=== PATIENT | male | born 1990 | race Hispanic/Latino ===

== ENCOUNTER 2016-11-23 15:12 | Emergency (ER) | payer OTHER ==
[~2016-11-23] VITALS: Ht 175.3 cm; Wt 72.1 kg
[2016-11-23 16:02] LABS: ABSOLUTE BASOPHIL COUNT 0 /CUMM (0.0-0.2); ABSOLUTE EOSINOPHIL COUNT 0 /CUMM (0.0-0.7); ABSOLUTE GRANULOCYTE CT 5.2 /CUMM (1.4-6.5); ABSOLUTE LYMPH COUNT 1.7 /CUMM (1.2-3.4); ABSOLUTE MONOCYTE COUNT 0.4 /CUMM (0.10-0.60); BASOPHIL % 0.4 % (0.0-2.0); EOSINOPHIL % 0.6 % (0-5); GRANULOCYTE % 69.9 % (42.2-75.2); HEMATOCRIT 47.3 % (42-52); MEAN CORPUSCULAR HGB CONC 33.5 G/DL (33.0-37.0); MEAN CORPUSCULAR VOLUME 89.3 FL (80.0-94.0); MEAN PLATELET VOLUME 8.8 FL (7.4-10.4); PLATELET COUNT 215 /CUMM (130-400); RBC DISTRIBUTION WIDTH 13.9 % (11.5-14.5); WHITE BLOOD CELL COUNT 7.5 /CUMM (4.8-10.8)
--- NOTE | 2016-11-23 16:14 | ED PSYCHIATRIC COMPLAINT ---
See Addendum History of Present Illness General Chief Complaint: Psychiatric Related Complaint Stated Complaint: DEPRESSION; SI Source: patient, family Exam Limitations: no limitations Allergies Coded Allergies: No Known Allergies (11/23/16) Reconcile Medications No Known Home Medications Triage Note: PT TO ER C/C +SI THOUGHTS AND INCREASED DEPRESSION X "AWHILE" DENIES HI. DENIES DRUG USE. LAST DRINK OF ETOH YESTERDAY. WHEN ASKED ABOUT DRINKING HABITS STATES, "I DRINK WHENEVER I FEEL LIKE IT". Triage Nurses Notes Reviewed? yes HPI: This patient is a 25-year-old male with past medical history including depression and anxiety who presented to the emergency department today by his mother for evaluation of suicidal thoughts. The patient reported that he has had suicidal thoughts in the past. The patient's mother reported that he has had depression for years with episodes of anxiety. She reported however that usually when he starts to feel very depressed, he talks things out with her and he has never mentioned suicidal thoughts until today. The patient denied having a specific plan. He denied making any suicidal attempts in the past. He denied any homicidal ideation or illicit drug use. When asked if the patient used alcohol, he reported, "when I want to." His last drink was last night. The patient denied any audio or visual hallucinations. He denied any fevers, chills , chest pain, shortness of breath, or abdominal pain. (ANGELINA BURR,CIAAR) Vital Signs & Intake/Output Vital Signs & Intake/Output Vital Signs Date Time Temp Pulse Resp B/P Pulse O2 O2 Flow FiO2 Ox Delivery Rate 11/24 1245 82 18 118/62 99 Room Air 11/24 0645 98.2 78 18 101/56 98 Room Air 11/24 0334 98.0 77 18 110/60 96 Room Air 11/23 2319 97.9 78 16 105/55 96 11/23 2154 99.8 86 16 120/60 95 Room Air 11/23 1900 96.2 87 20 133/62 97 Room Air ED Intake and Output 11/24 0000 11/23 1200 Intake Total Output Total Balance Patient 159 lb Weight Past History Travel History Traveled to [place] past 21 day No Medical History Any Pertinent Medical History? see below for history Psychiatric: depression Surgical History Surgical History: non-contributory Psychosocial History What is your primary language Belgian Tobacco Use: Current Daily Use Daily Tobacco Use Amount/Type: => 5 Cigarettes daily ETOH Use: occasional use Family History Hx Contributory? No (CIARA ALFARO PA-C) Review of Systems Review of Systems Constitutional: Reports: no symptoms. EENTM: Reports: no symptoms. Respiratory: Reports: no symptoms. Cardiovascular: Reports: no symptoms. GI: Reports: no symptoms. Musculoskeletal: Reports: no symptoms. Skin: Reports: no symptoms. Neurological/Psychological: Reports: see HPI. 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 Normal inspection Cardiovascular: Regular rate and rhythm with no murmurs, rubs, or gallops Respiratory: Chest nontender. No respiratory distress. Breath sounds clear to auscultation bilaterally Extremity: Normal and equal pulses Neuro: Alert oriented x3, cranial nerves II through XII grossly intact. Skin: No appreciable rash on exposed skin, skin is warm and dry. Psych: Mood and affect is depressed SAD PERSONS Done? yes (CIARA ALFARO PA-C) Progress Differential Diagnosis: drug intoxication, drug overdose, drug withdrawal, electrolyte abnormality, encephalitis, hypothyroidism, IC hem/mass/tumor, ALCOHOL INTOXICATION, MAJOR DEPRESSIVE DISORDER, GENERALIZED ANXIETY DISORDER Hand-Off Endorsed To: ELLI MENDIETA MD Endorsed Time: 230 Pending: consult, other (CIARA ALFARO PA-C) Plan of Care: Orders Procedure Date/time Status Continuous Observation Monitor 11/24 0822 Active Current Medications Sig/Amaris Start time Last Medication Dose Stop Time Status Admin Nicotine 21 MG DAILY 11/24 1000 CAN (Nicoderm) Hand-Off Endorsed To: MANJIT MCKAY DO Endorsed Time: 07 Pending: other (bed search) (ELLI MENDIETA MD) Departure Departure Disposition: STILL A PATIENT Condition: Stable Clinical Impression Primary Impression: Suicidal ideation Referrals: PATIENT HAS NO PRIMARY CARE DR (PCP/Family) Departure Forms: Customer Survey General Discharge Information Prescriptions: Current Visit Scripts No Known Home Medications (CIARA ALFARO PA-C) Departure Comments 11/24/16 11 AM the patient was signed out to me by Dr. Mendieta at 7 AM (MANJIT MCKAY DO) (CIARA ALFARO PA-C) Hand-Off Endorsed To: MANJIT MCKAY DO Endorsed Time: 0700 Pending: other (bed search) (FARA HIGH,ELLI Yoder) Departure Departure Disposition: STILL A PATIENT Condition: Stable Clinical Impression Primary Impression: Suicidal ideation Referrals: PATIENT HAS NO PRIMARY CARE DR (PCP/Family) Departure Forms: Customer Survey General Discharge Information Prescriptions: Current Visit Scripts No Known Home Medications (ANGELINA BURR,CIARA) Departure Comments 11/24/16 11 AM the patient was signed out to me by Dr. Mendieta at 7 AM (MANJIT MCKAY DO)
--- NOTE | 2016-11-23 19:25 | ED PSYCH CRISIS CONSULTATION ---
See Addendum Crisis Consult Basic Assessment Date of Consult: 11/23/16 Responsible Person/Accompanied By: with Mother Insurance Authorization: Insurance #1: Insurance name: SELF-PAY Phone number: Policy number: Group number: Authorization number: ED Provider: Patient's ED Provider: CIARA ALFARO PA-C Primary Care Physician: Patient's PCP: PATIENT HAS NO PRIMARY CARE DR PCP's Phone Number: Current Psychiatrist: None Chief Complaint: Psychiatric Related Complaint Patient's Quote: "I hate my life, and I want to kill myself" Present Illness: Pt is a 25 year old male, he told his stepfather this afternoon that he was having thoughts of hurting himself. He arrives with his Mother and states he doesn't like his life, and he wants to kill himself. He states he has had feelings of depression and anxiety for a while now, he denies any previous psychiatric treatment i.e. inpatient,outpatient. He has not been on any psychiatric medications currently or previously. He denies drug use, tox screen is negative. he admits he "manages his depression" by drinking, he reports the drinking varies, some days its just a beer, and other days he gets drunk, and drinks jagermeister. Pt also tries to manage symptoms by drawing, art, and painting, he also has an exgirlfriend "who si going thru the same thing, and she is a support". Pt denies hi/ah/vh. Pt reports si. 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 Patient's Address: [address] [place] [address] Other Phone Number: Who Do You Live With? Family Family/Informants Interviewed: Dmitriy Jeffries, who is with him, states he has been isolating and withdrawn all week, she reports she suffers from depression and had been to [facility] 5 years ago, she is fearful for her sons safety, she reports he alexey to talk to her and process life with her and this week he has been different. Allergies - Coded Allergies: No Known Allergies (11/23/16) Current Medications - No Known Home Medications Laboratory Results: Laboratory Tests 11/23/16 1553: CBC w Diff NO MAN DIFF REQ, RBC 5.30, MCV 89.3, MCH 30.0, RDW 13.9, MPV 8.8, Gran % 69.9, Lymphocytes % 23.2, Monocytes % 5.9, Eosinophils % 0.6, Basophils % 0.4, Absolute Granulocytes 5.2, Absolute Lymphocytes 1.7, Absolute Monocytes 0.4 , Absolute Eosinophils 0, Absolute Basophils 0, PUBS MCHC 33.5 11/23/16 1545: Anion Gap 11, Estimated GFR > 60, BUN/Creatinine Ratio 7.8, Glucose 88, Calcium 9.2, Total Bilirubin 0.5, AST 23, ALT 40, Alkaline Phosphatase 61, Total Protein 7.1, Albumin 4.5, Globulin 2.6, Albumin/Globulin Ratio 1.7, Serum Alcohol 137.0 11/23/16 1541: Urine Opiates Screen < 100.00, Methadone Screen < 40, Barbiturate Screen < 60, Ur Phencyclidine Scrn < 6.00, Amphetamines Screen < 100, U Benzodiazepines Scrn < 85, Urine Cocaine Screen < 50, Urine Cannabis Screen 33.60 Past History Past Medical History Psychiatric: depression Past Surgical History Surgical History: non-contributory Psychosocial History Strengths/Capabilities: art, works, family Psychiatric Treatment History Psych Treatment Psychiatric Treatment No Diagnosis by History: UNKNOWN/ No HX Substance Use/Abuse History Drug Use/Abuse Substances Used/Abused Yes Substance Used/Abused Alcohol First Use teenage/early 20s Last Used last night How much used/taken varies How often on and off, lately almost daily For how long on and off for years Route of use oral Substance Abuse Treatment Substance Abuse Treatment Past Substance Abuse [place] No Comments: denies drug tx. Current Mental Status Mental Status Orientation: Person, Place, Situation Affect: Anxious, Sad Speech: WNL Neuro-vegetative: Appetite Decreased, Energy Decreased, Helpless, Sleep Disturbance Appearance Appearance- Dress/Hygiene: looks his age, in scrubs, earrings and wears glasses Behaviors Thought Process: Irrational Thought Content: WNL Memory: WNL Insight: Poor SI/HI Risk Assessment Past Suicidal Ideation/Attempts No Current Suicidal Ideation/Att Yes Past Homicidal Ideation/Att: No Current Homicidal Ideation/Attempts No Degree of Intent: States Intent Danger To: Self Risk Factors: high anxiety/distress, substance abuse, male Lethality Ratin PTSD Checklist PTSD Done? patient declined ED Management Sitter: Yes Restraints: No DSM5/PS Stressors/Medical Prob Diagnosis' (DSM 5, Stressors, Medical): F32.9 Unspecified depression F41.9 Unspecified anxiety F 10.20 Etoh abuse D/O Moderate Current GAF: 27 Departure Disposition Psych Medical Clearance Date: 11/23/16 Medically Cleared at: 1830 Time Started: 1829 Time Ended: 1929 Psychiatrist Consulted: Barrie Disposition Established: 11/23/16 Time Disposition Established: 1921 Plan for Disposition - Modality: Inpatient Psychiatry Rationale for Disposition: Consulted with Dr. Sood pt is feeling like he wants to hurthimself +si, and Mom concurs she is worried about his worening depression, pt to remain in ER and meets criteria for an inpatient hospitialization. Referrals PATIENT HAS NO PRIMARY CARE DR (PCP/Family)
[2016-11-24 12:45] VITALS: BP 118/62
--- NOTE | 2016-11-24 16:41 | ED PSYCHIATRIST/APRN CONSULT ---
Psychiatrist/DENTAL PATIENT COORDINATOR ED Consult Assessment and Plan: Crisis workers' note reviewed. Patient seen with lineworker, Katerine, at 11: 45 a.m. 25 yo SHM who presented to the ER on 11/23/16. Reports (step)mother brought him to the ER because he needed help. Reports that he gets depressed too much and gets anxious. States "with the breakup, everything crumbled. When I'm depressed, everything bothers me." Reports he drank multiple alcholic beverages on the night prior to presentation. Reportedly remarked to his step-father that he would be better off not being alive. Reports a 15 month blanca relationship with girlfriend. Finds it stressful when they argue. Past psychiatric hx: Outpatient counseling at [facility] for a couple of visits, years ago. No clear inpatient tx history. Denies hx suicide attempts. Substance use hx: Tobacco: ~10 cigs/day. Alcohol: "social" on weekends. Cannabis use in high school. Urine drug screen was negative. EtOH was 137.0. NKA. Rx: None. PMH: None. Family psychiatric and substance abuse hx: Psychiatric: none per patient. Per lineworker's note, (step)mother had a [facility] admission for depression 5 years ago. Substances: bio father and both maternal grandparents: alcohol. Suicides: none. Social hx: Lives with step-mother, 21 yo brother, and sisters, 18 and 25. Father is in [place]. Mother may be in [place]. HS graduate + 1 yr at [employer]. 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 Criminal records was expunged due to A /R. MSE: Ambulatory HM, bearded, with tatoos, dressed in blue paper scrubs, sitting in a chair in NAD. Calm, polite and cooperative. No psychomotor agitation/ retardation. Speech normal in volume, rate and tone. Affect is calm and euthymic. Mood: "actually feel good." Sad ~5/10. Anxiety ~9/10, which patient states is due to noisy peer in ER. Denies feeling hopeless. Feels helpless and worthless sometimes. Denies feeling guilty. Denies active and passive SI, HI, AH, VH, PI and magical mays. Insight and judgment are currently good. There is no apparent thought d/o or delusions. Ox3 except gave the date as Thursday, November 19 or 2016. Cognition is grossly intact. Estimate of intellectual functioning is average. Sleep: "I don't really sleep much." Appetite okay at home but doesn't like the food here. Energy is fine. IMPRESSION: Unspecified depression. Alcohol use disorder. Patient is not suicidal at this time. Okay for discharge to home with referral to [facility]. Patient was advised to stop alcohol use.
== END 2016-11-24 12:46 ==
LOC: ERH 15:12
PROVIDERS: Physician Assistant
DX: R45.851 Suicidal ideations (principal)
CPT/HCPCS: 80307; G0463; G0480